=== PATIENT | female | born 1950 | race Caucasian/White ===

== ENCOUNTER 2019-05-14 09:09 | Day surgery (SDC) | payer OTHER ==
[~2019-05-14] VITALS: Ht 157.5 cm; Wt 53.1 kg
[~2019-05-14 09:09] MED LIST: CHOL10002 PO; FOLATE PO; LISI20 PO; Multivitamin1 EAC1 PO; VITAMIN E PO
--- NOTE | 2019-05-14 09:48 | NUR ---
History, Chart, Medications and Allergies reviewed before start of procedure. Patient confirms NPO status and agrees with scheduled surgery. Lungs clear T/O to Auscultation. Pre-Op teaching done. Pt verbalizes understanding. Patient states colon prep results clear.
[2019-05-14] MEDS ORDERED: Altoprev40 MG PO (10:08)
[2019-05-14] MEDS ORDERED: METO25ER PO (10:09)
[2019-05-14] MEDS ORDERED: Flecainide Acet50 MG PO (10:09)
[2019-05-14] MEDS ORDERED: WARF3 PO (10:10)
--- NOTE | 2019-05-14 10:32 | NUR ---
05/14/19 1032 Sandro Mckeon History, Chart, Medications and Allergies reviewed before start of procedure.MONITOR INTACT WITH CONTINUOUS PULSE OXIMETRY AND INTERMITTENT BP.3-LEAD EKG REVIEWED WITH PHYSICIAN PRIOR TO START OF PROCEDURE.O2 VIA N/C INTACT THROUGHOUT SEDATION/PROCEDURE. Patient confirms NPO status and agrees with scheduled surgery.PATIENT DETERMINED TO BE ASA APPROPRIATE FOR PROPOFOL SEDATION PRIOR TO START OF PROCEDURE BY DR. MADRIGAL.
--- NOTE | 2019-05-14 10:51 | NUR ---
PATIENT TO [facility] VIA GURCRESCENCIO FROM RADIOLOGY. PER DR MANZANARES PATIENT DID WELL IN PROCEDURE WITH NO POSTPROCEDURAL BLEEDING AND NO COMPLAINT OF PAIN. PATIENT STATED UPON ADMIT TO STEPDOWN IN SDS THAT SHE WAS AT A 7/10 ON HER RIGHT SIDE AND THAT SHE THINKS IT MIGHT BE FROM LAYING ON THAT SIDE. WILL REASSESS WHEN SHE IS ABLE TO POSITION TO HER BACK FROM HER SIDE.
--- NOTE | 2019-05-14 11:40 | NUR ---
PT TO BATHROOM VIA W/C AND BACK TO BED.
--- NOTE | 2019-05-14 11:50 | NUR ---
PT HAS CALLED FOR A RIDE. TOLERATED PO FLUIDS. DENIES C/O AT THIS TIME. Discharge instructions reviewed with patient. Patient verbalizes understanding. Copy given to patient to take home. Patient States Post-Procedure ride home has been arranged.
== END 2019-05-14 12:00 | disposition home or self-care (01) ==
LOC: ORSCMMR 09:09 → ORD 10:30 → ORSCMMR 10:30
PROVIDERS: Internal Medicine Gastroenterology
PROC: 0DBL8ZX Excision of Transverse Colon, Via Natural or Artificial Opening Endoscopic, Diagnostic (ICD-10-PCS; principal; 2019-05-14 10:30)
PROC: 0DB98ZX Excision of Duodenum, Via Natural or Artificial Opening Endoscopic, Diagnostic (ICD-10-PCS; principal; 2019-05-14 10:30)
PROC: 0DBN8ZX Excision of Sigmoid Colon, Via Natural or Artificial Opening Endoscopic, Diagnostic (ICD-10-PCS; principal; 2019-05-14 10:30)
PROC: 0DB68ZX Excision of Stomach, Via Natural or Artificial Opening Endoscopic, Diagnostic (ICD-10-PCS; principal; 2019-05-14 10:30)
DX: D46.4 Refractory anemia, unspecified (principal); Z86.010 Personal history of colon polyps; D12.3 Benign neoplasm of transverse colon; K63.5 Polyp of colon; I10 Essential (primary) hypertension; I48.0 Paroxysmal atrial fibrillation; Z79.01 Long term (current) use of anticoagulants; Z79.899 Other long term (current) drug therapy; E78.00 Pure hypercholesterolemia, unspecified; F17.210 Nicotine dependence, cigarettes, uncomplicated
CPT/HCPCS: 88305; 88342; J2704; J7120